=== PATIENT | male | born 1995 | race African-American/Black ===

== ENCOUNTER 2018-04-30 16:24 | Inpatient (IN) ==
--- NOTE | 2018-04-30 17:23 | ED ---
HPI General Chief Complaint: Psychiatric Symptoms Stated Complaint: psych eval/FCSO Time Seen by Provider: 04/30/18 17:01 Source: patient Mode of arrival: other (FCSO) Limitations: no limitations History of Present Illness HPI Narrative: 22-year-old male presents emergency department as a Al act with hallucinations. Servando act states that patient has been seeing people outside of his house. He denies suicidal homicidal ideations at this time. He denies recent illicit drug use says he does smoke marijuana every now and then. Denies recent use of alcohol. Patient says that he has been self-medicating which helps control his "chemical imbalance" for his bipolar disorder. Patient says that he recently got out of skilled nursing and says that he has been dealing drugs but not actually doing these drugs. He says that people have been stealing from his home as he lets people in his home to stay. He says his mother is making a trip to [place] tomorrow and believes this is the reason why she called them to be Al acted today. MD complaint: other Duration: constant History of same: No Relieving factors: other (Subjectively, illicit drugs) Exacerbating factors: none Context: not taking psychiatric medications Associated psychiatric symptoms: racing thoughts Associated symptoms: insomnia Treatments prior to arrival: none Related Data Home Medications Medication Instructions Recorded Confirmed No Known Home Medications 04/30/18 04/30/18 Allergies Allergy/AdvReac Type Severity Reaction Status Date / Time No Known Allergies Uncoded 05/17/11 22:53 Review of Systems Except as stated in HPI: all other systems reviewed are negative Exam Narrative Exam Narrative: GENERAL: Well-developed, nourished in no apparent distress SKIN: Focused skin assessment warm/dry. HEAD: Atraumatic. Normocephalic. EYES: Pupils equal and round. No scleral icterus. No injection or drainage. ENT: No nasal bleeding or discharge. Mucous membranes pink and moist. NECK: Trachea midline. No JVD. CARDIOVASCULAR: Regular rate and rhythm. No murmur appreciated. RESPIRATORY: No accessory muscle use. Clear to auscultation. Breath sounds equal bilaterally. GASTROINTESTINAL: Abdomen soft, non-tender, nondistended. Hepatic and splenic margins not palpable. No CVA tenderness MUSCULOSKELETAL: No obvious deformities. No clubbing. No cyanosis. No edema. NEUROLOGICAL: Awake and alert. No obvious cranial nerve deficits. Motor grossly within normal limits. Normal speech. PSYCHIATRIC: Appropriate mood, normal affect, uncertain judgment. Course Initial Documented Vital Signs Temperature 98.7 F 04/30/18 16:46 Pulse Rate 78 04/30/18 16:46 Respiratory Rate 18 04/30/18 16:46 Blood Pressure 156/98 H 04/30/18 16:46 Pulse Oximetry 98 04/30/18 16:46 Last Documented Vital Signs Temperature 98.7 F 04/30/18 16:46 Pulse Rate 78 04/30/18 16:46 Respiratory Rate 18 04/30/18 16:46 Blood Pressure 156/98 H 04/30/18 16:46 Pulse Oximetry 98 04/30/18 16:46 Medical Decision Making MDM Narrative Medical decision making narrative: 22-year-old male presents emergency department as a Al act with visual and auditory hallucinations. Patient adamantly denies that these are actually hallucinations and states that because he deals drugs he has people around his house all the time. According to the Al act patient has not slept in 3 days. He has no complaints today. His vital signs are stable. Labs ordered and stable. Pending urine drug screen. Patient is medically cleared to see psych. Lab Data Result diagrams: 04/30/18 16:48 04/30/18 16:48 Lab Results 04/30/18 04/30/18 Range/Units 16:48 16:48 WBC 6.3 (4.0-11.0) th/mm3 RBC 6.22 H (4.50-5.90) mil/mm3 Hgb 14.1 (13.0-17.0) gm/dL Hct 43.7 (39.0-51.0) % MCV 70.2 L (80.0-100.0) fL MCH 22.7 L (27.0-34.0) pg MCHC 32.3 (32.0-36.0) % RDW 14.9 (11.6-17.2) % Plt Count 202 (150-450) th/mm3 MPV 10.9 (7.0-11.0) fL Neut % (Auto) 57.9 (16.0-70.0) % Lymph % (Auto) 27.2 (9.0-44.0) % [place] % (Auto) 11.0 H (0.0-8.0) % Eos % (Auto) 3.3 (0.0-4.0) % Baso % (Auto) 0.6 (0.0-2.0) % Neut # (Auto) 3.6 (1.8-7.7) th/mm3 Lymph # (Auto) 1.7 (1.0-4.8) th/mm3 [place] # (Auto) 0.7 (0.0-0.9) th/mm3 Eos # (Auto) 0.2 (0.0-0.4) th/mm3 Baso # (Auto) 0.0 (0.0-0.2) th/mm3 WBC Differential . Differential Comment Auto diff final Sodium 141 (136-145) meq/L Potassium 3.9 (3.5-5.1) meq/L Chloride 106 (98-107) meq/L Carbon Dioxide 25.9 (21.0-32.0) meq/L Anion Gap 9 (5-15) meq/L BUN 8 (7-18) mg/dL Creatinine 1.07 (0.60-1.30) mg/dL Estimated GFR Greater than 89 (>89) mL/min Random Glucose 86 (74-106) mg/dL Calcium 9.3 (8.5-10.1) mg/dL Total Bilirubin 0.4 (0.2-1.0) mg/dL AST 44 H (15-37) U/L ALT 54 (12-78) U/L Alkaline Phosphatase 73 (45-117) U/L Total Protein 8.3 H (6.4-8.2) g/dL Albumin 3.7 (3.4-5.0) g/dL TSH 0.610 (0.358-3.740) uIU/mL Serum Alcohol Less than 3 (0-5) mg/dL Discharge Plan Discharge Disposition Patient Disposition: 30 Still Patient Discharge Condition Condition: Stable Discharge Details Diagnosis: Acute psychosis Physicians Team ED Provider: Bobbi Ahumada ED Midlevel Provider: Jessica Murillo Primary Care Provider: Primary Care Crystal Jara Rxs /Orders / Referrals /Forms Prescriptions: No Action No Known Home Medications RF: 0 Status ED Status: Medically Cleared
[2018-04-30 18:06] LABS: Baso % (Auto) 0.6 % (0.0-2.0); Eos # (Auto) 0.2 th/mm3 (0.0-0.4); Eos % (Auto) 3.3 % (0.0-4.0); Hematocrit 43.7 % (39.0-51.0); Hemoglobin 14.1 gm/dL (13.0-17.0); Lymph # (Auto) 1.7 th/mm3 (1.0-4.8); Lymph % (Auto) 27.2 % (9.0-44.0); Mean Corpuscular HGB Conc 32.3 % (32.0-36.0); Mean Corpuscular Hemoglobin 22.7 pg (27.0-34.0); Mean Corpuscular Volume 70.2 fL (80.0-100.0); Mean Platelet Volume 10.9 fL (7.0-11.0); Mono # (Auto) 0.7 th/mm3 (0.0-0.9); Neut # (Auto) 3.6 th/mm3 (1.8-7.7); Neut % (Auto) 57.9 % (16.0-70.0); Platelet Count 202 th/mm3 (150-450); Red Blood Count 6.22 mil/mm3 (4.50-5.90); Red Cell Distribution Width 14.9 % (11.6-17.2); White Blood Count 6.3 th/mm3 (4.0-11.0)
[2018-04-30 18:43] LABS: Albumin 3.7 g/dL (3.4-5.0); Anion Gap 9 meq/L (5-15); Aspartate Aminotransferase 44 U/L (15-37); Blood Urea Nitrogen 8 mg/dL (7-18); Calcium 9.3 mg/dL (8.5-10.1); Carbon Dioxide 25.9 meq/L (21.0-32.0); Chloride 106 meq/L (98-107); Glomerular Filtration Rate Greater Than 89 mL/min (>89); Glucose,Random 86 mg/dL (74-106); Potassium 3.9 meq/L (3.5-5.1); Sodium 141 meq/L (136-145)
[2018-04-30 18:45] LABS: Alanine Aminotransferase 54 U/L (12-78)
[2018-04-30 18:55] LABS: Alkaline Phosphatase 73 U/L (45-117); Total Protein 8.3 g/dL (6.4-8.2)
[2018-04-30 22:44] LABS: Amphetamine Screen,Urine Neg (Neg); Barbiturate Screen,Urine Neg (Neg); Cannabinoid Screen,Urine Pos (Neg); Cocaine Screen,Urine Neg (Neg)
[2018-04-30 22:47] LABS: Opiate Screen,Urine Neg (Neg)
[2018-05-01] MEDS ORDERED: Aluminum/Magnesium/Simethacone Susp 30 ML UDC PO PRN (18:53)
--- NOTE | 2018-05-01 18:55 | ED ---
HPI - Psych - General Source: patient Mode of arrival: other (FCSO) Limitations: altered mental status - History of Present Illness MD complaint: altered mental status Duration: constant History of same: Yes (2010) Relieving factors: other (Subjectively, illicit drugs) Exacerbating factors: none Context: recent drug abuse Associated psychiatric symptoms: delusions Associated symptoms: insomnia Treatments prior to arrival: none - General Chief Complaint: Psychiatric Symptoms Stated Complaint: psych eval/FCSO Time Seen by Provider: 04/30/18 17:01 - History of Present Illness HPI Narrative: This is a 22 year-old, single -Surinamese male who presents under a Al act for bizarre behavior. Patient has 1 previous psychiatric admission at [facility] for depression in 2010. Reviewed electronic medical record, labs, and discussed case with staff. Patient 's toxicology is positive for cannabinoids. His evaluation was performed in his room in the ED. Patient is awake, alert and oriented X 3. His speech is clear, logical, and organized. There is no indication of internal stimulation or thought blocking. However, he is fixated on the idea that his mother has moved to [place] and we have caused him to miss the plane due to keeping him here. A phone call to his mother, by his nurse Caitlyn, revealed that she is taking a five day trip in the future and offered to bring him along. He denies suicidal or homicidal ideation, auditory and visual hallucinations. His mother reports that he has been paranoid, believing that people are outside that "want to kill him" . She also reports that he has made verbal threats to harm her, and has not slept in three days. He is disheveled and malodorous. I was unable to ascertain if patient hears or sees the people he believes are outside, due to his becoming disinclined to answer questions. (Ivy Melchor) - Related Data Home Medications Medication Instructions Recorded Confirmed No Known Home Medications 04/30/18 04/30/18 Allergies Allergy/AdvReac Type Severity Reaction Status Date / Time No Known Allergies Uncoded 05/17/11 22:53 PMFSH - History History Provided By: Patient, Family Member - Medical History Medical History: Medical History (Last Reviewed 05/01/18 @ 19:06 by FLAVIO Sampson) Patient denies medical problems - Tobacco History Second Hand Smoke Exposure: No Tobacco Use In Past 30 Days: No Smoking Status: Unknown if ever smoked - Alcohol History How Often Do You Have a Drink Containing Alcohol: Never - Substance Use History Substance History: No History of Abuse - Immunization History Tetanus Immunization: Unsure Hx Influenza Vaccine This Season: No Psychiatric History - Psychiatric History Psychiatric Treatment History: History of Psychiatric Treatment, History of Hospitalization in a Psychiatric Facility, History of Community Mental Health Treatment History of Inpatient Treatment: Yes Firearms in Home: No - Psychiatric History Admitted in 2010 to [facility] for depression. (Ivy Melchor) - Legal History UTO (Ivy Melchor) Physical Exam - General Limitations: no limitations Mental Status Examination Appearance: Disheveled, Malodorous Consciousness: Alert, Vigilant Orientation: Person, Place, Date/Time Motor Activity: Normal gait Speech: Unremarkable Language: Adequate Fund of Knowledge: Inadequate Attention and Concentration: Adequate Memory: Unremarkable Mood: Anxious Affect: Anxious Thought Process & Associations: Circumstantial, Tangential Thought Content: Delusional Delusion Type: Paranoid Suicidal Ideation: No Suicidal Plan: No Suicidal Intention: No Homicidal Ideation: No Homicidal Plan: No Homicidal Intention: No Insight: Poor Judgment: Impulsive Initial Documented Vital Signs Temperature 98.7 F 04/30/18 16:46 Pulse Rate 78 04/30/18 16:46 Respiratory Rate 18 04/30/18 16:46 Blood Pressure 156/98 H 04/30/18 16:46 Pulse Oximetry 98 04/30/18 16:46 Last Documented Vital Signs Temperature 98.4 F 05/01/18 10:46 Pulse Rate 82 05/01/18 10:46 Respiratory Rate 16 05/01/18 10:46 Blood Pressure 148/92 H 05/01/18 10:46 Pulse Oximetry 99 05/01/18 10:46 MDM - Psych - Diagnosis (1) Unspecified psychosis Status: Acute - Lab Data Result diagrams: 04/30/18 16:48 04/30/18 16:48 - [facility] Narrative Medical decision making narrative: Based on the mother's description of his recent paranoid behaviors and his threats to harm her, it seems likely that he is experiencing a psychois. He will be admitted under the Al Act to a locked inpatient psychiatric unit for evaluation and treatment as deemed necessary. (Ivy Melchor) - Lab Data Lab Results 04/30/18 04/30/18 04/30/18 Range/Units 16:48 16:48 17:07 WBC 6.3 (4.0-11.0) th/mm3 RBC 6.22 H (4.50-5.90) mil/mm3 Hgb 14.1 (13.0-17.0) gm/dL Hct 43.7 (39.0-51.0) % MCV 70.2 L (80.0-100.0) fL MCH 22.7 L (27.0-34.0) pg MCHC 32.3 (32.0-36.0) % RDW 14.9 (11.6-17.2) % Plt Count 202 (150-450) th/mm3 MPV 10.9 (7.0-11.0) fL Neut % (Auto) 57.9 (16.0-70.0) % Lymph % (Auto) 27.2 (9.0-44.0) % [place] % (Auto) 11.0 H (0.0-8.0) % Eos % (Auto) 3.3 (0.0-4.0) % Baso % (Auto) 0.6 (0.0-2.0) % Neut # (Auto) 3.6 (1.8-7.7) th/mm3 Lymph # (Auto) 1.7 (1.0-4.8) th/mm3 [place] # (Auto) 0.7 (0.0-0.9) th/mm3 Eos # (Auto) 0.2 (0.0-0.4) th/mm3 Baso # (Auto) 0.0 (0.0-0.2) th/mm3 WBC Differential . Differential Comment Auto diff final Sodium 141 (136-145) meq/L Potassium 3.9 (3.5-5.1) meq/L Chloride 106 (98-107) meq/L Carbon Dioxide 25.9 (21.0-32.0) meq/L Anion Gap 9 (5-15) meq/L BUN 8 (7-18) mg/dL Creatinine 1.07 (0.60-1.30) mg/dL Estimated GFR Greater than 89 (>89) mL/min Random Glucose 86 (74-106) mg/dL Calcium 9.3 (8.5-10.1) mg/dL Total Bilirubin 0.4 (0.2-1.0) mg/dL AST 44 H (15-37) U/L ALT 54 (12-78) U/L Alkaline Phosphatase 73 (45-117) U/L Total Protein 8.3 H (6.4-8.2) g/dL Albumin 3.7 (3.4-5.0) g/dL TSH 0.610 (0.358-3.740) uIU/mL Urine Opiates Screen Neg (Neg) Ur Barbiturates Screen Neg (Neg) Ur Amphetamines Screen Neg (Neg) U Benzodiazepines Scrn Neg (Neg) Urine Cocaine Screen Neg (Neg) U Cannabinoids Screen Pos H (Neg) Serum Alcohol Less than 3 (0-5) mg/dL
--- NOTE | 2018-05-02 13:20 | P.HPPSY ---
Provisional Diagnosis Admission Date: May 01, 2018 18:55 [place].: Unspecified psychosis, rule out substance-induced psychotic disorder Competence Certification of Person's Competence To Provide Express and Informed Consent I have personally examined Tomas Luna, a person being served at [facility] on, May 02, 2018 1301. Express and informed consent means consent voluntarily given in writing, by a competent person, after sufficient explanation and disclosure of the subject matter involved to enable the person to make a knowing and willful decision without any element of force, fraud, deceit, duress, or other form of constraint or coercion. This person is 18 years of age or older, is not now known to be incompetent to consent to treatment with a guardian advocate, and does not have a health care surrogate or proxy currently making medical treatment decisions. I have found this person to be one of the following: [] Competent to provide express and informed consent, as defined above, for voluntary admission to this facility and is competent to provide express and informed consent for treatment. He/she has the consistent capacity to make well reasoned, willful, and knowing decisions concerning his or her medical or mental health treatment. The person fully and consistently understands the purpose of the admission for examination/placement and is fully capable of personally exercising all rights assured [place] [] Incompetent to provide express and informed consent to voluntary admission, and this is incompetent to provide express and informed consent to treatment. The person must be transferred to involuntary status and a petition for a guardian advocate filed with the Circuit Court. [xxx] Refusing to provide express and informed consent to voluntary admission but is competent to provide express and informed consent for treatment. The person must be discharged or transferred to involuntary status. Form shall be completed within 24 hours of a person's arrival at the receiving facility and filed in the clinical record of each person: 1. Admitted on a voluntary basis 2. Permitted to provide express and informed consent to his/her own treatment 3. Allowed to transfer from involuntary to voluntary status 4. Prior to permitting a person to consent to his or her own treatment after having been previously found incompetent to consent to treatment. History of Present Illness Capacity: Has capacity History of Present Illness: Patient is a 22-year-old -Tunisian man, single, unemployed, domiciled with mother, with a past psychiatric history of bipolar disorder as per patient , PTSD, multiple psychiatric admissions last time at [facility] in 2010, multiple suicide attempt years ago, with a substance use history significant for marijuana use, with a past medical history of diabetes as per patient, who was brought under Al act due to reported paranoid ideation along with poor sleep for the past 3 days which patient was admitted to the inpatient psychiatry for further evaluation and management for possible psychosis. Patient in the ED had no behavioral disturbances although noted to be superficially cooperative during interview and collateral information obtained in the ED reported that mother had stated patient had an paranoid, had not slept for 3 days and had made verbal threats to harm her. Patient was seen on the unit interviewed with nurse and counselor and noted to be somewhat irritable with interview as he does not want to be here in the hospital stating that his mother had made up these accusations in the context of mother leaving to [place] for several days. Patient states that he is feeling "irritated" stating that his mother had lied trying to get control of him and have him kept in the hospital at this time. Patient's that he is not depressed, denying any perceptual services denying feeling that there are people after him but did state that there are times where she is round in his home from people he allows to stay in his house. He reports be unemployed but then states that he does makes money but did not elaborate on how. As per chart patient had reported having sold drugs but not use them. He refuses to resume any medications at this time stating that he had been on many combinations of regimens of medications in the past and has recently been attempting to manage his symptoms through holistic means and therefore refuses to resume any psychotropic medications. Patient mentions having gone to custodial and having been released several months ago; denied any criminal charges of violence. Patient refuses to provide consent to speak with patient's mother and states that he did not want to return back to live with her and that he has planned to call a friend stay with them. Patient this time denies any perceptional service of delusions, denies any SI or HI. Past psychiatric history: Previous psychiatric diagnoses of bipolar disorder, PTSD, multiple psychiatric admissions last time and [facility] in 2010, multiple suicide attempt years ago, previous medication trials psychotropic medications but reports his last regimen included Lexapro and Latuda which she had taken "awhile ago". Substance use history: Marijuana use reports prior use of other services but did not elaborate. Past medical history: Patient reports history of diabetes? Allergies: NKDA Social history: Single, no children, domiciled with mother, unemployed, supported financially by mother, and legal history: Recently released from custodial. Patient denies any access to firearms, no background. - Inpatient Certification I certify that the inpatient services were ordered in accordance with Medicare regulations governing the order. This includes certification that hospital inpatient services are reasonable and necessary and in the case of services not specified as inpatient-only under 42 CFR 419.22(n), that they are appropriately provided as inpatient services in accordance to with the 2-midnight benchmark under 43 CFR 412.3(e) I certify that inpatient psychiatric hospital services are medically necessary. Evaluation and treatment and/or diagnostic testing are expected to improve the patient's condition. The patient needs on a daily basis, active treatment furnished directly by or requiring the supervision of inpatient psychiatric facility personnel. Estimated Total Length of Stay (Days): 7 Plans for Post Hospital Care: Home Review of Systems All other systems reviewed negative except as [facility] - History History Provided By: Patient, Family Member - Medical History Medical History: Medical History (Last Reviewed 05/01/18 @ 19:06 by FLAVIO Sampson) Patient denies medical problems - Tobacco History Second Hand Smoke Exposure: No Tobacco Use In Past 30 Days: No Smoking Status: Unknown if ever smoked - Alcohol History How Often Do You Have a Drink Containing Alcohol: Never - Substance Use History Substance History: No History of Abuse - Immunization History Tetanus Immunization: Unsure Hx Influenza Vaccine This Season: No Quality Measures - Psychiatric History Violence risk to others in the last 6 months: Low S patient not endorsing any homicidal ideations but will be monitored as there was report of patient having made threats to harm other per collateral information. Violence risk to self in the last 6 months: Not acutely elevated as patient denying any suicide ideations but has history of suicide attempts in the past. - Substance Abuse History Drug or alcohol use in the past 12 months: Marijuana use, history of other substance use which patient did not elaborate. - Patient Strengths Patient's strengths (minimum of 2): Verbal and communicative Medications and Allergies Active Medications: Active Medications Al Hydrox/Mg Hydrox/Simethicone (Mag-Al Plus Susp Liq) 30 ml PO Q6H PRN PRN Reason: DYSPEPSIA Allergies Allergy/AdvReac Type Severity Reaction Status Date / Time No Known Allergies Uncoded 05/17/11 22:53 Home Medications Medication Instructions Recorded Confirmed Type No Known Home Medications 04/30/18 04/30/18 History Results - Labs CBC & Chem 7: 04/30/18 16:48 04/30/18 16:48 Exam Vital signs: Vital Signs 05/02/18 06:35 Temperature 97.6 F Pulse Rate 63 Respiratory Rate 17 Blood Pressure 141/91 H Pulse Oximetry 97 Narrative: Patient not noted to be in acute distress, no gross motor abnormalities, no tremors or EPS, no noted psychomotor retardation or agitation. Mental Status Examination Appearance: Disheveled, Malodorous Consciousness: Alert, Vigilant Orientation: Person, Place, Date/Time Motor Activity: Normal gait Speech: Unremarkable Language: Adequate Fund of Knowledge: Inadequate Attention and Concentration: Adequate Memory: Unremarkable Mood: Other ("Irritated") Affect: Irritable Thought Process & Associations: Other ([place]) Thought Content: Other Hallucination Type: None Delusion Type: Paranoid (Denies today) Suicidal Ideation: No Suicidal Plan: No Suicidal Intention: No Homicidal Ideation: No Homicidal Plan: No Homicidal Intention: No Insight: Poor Judgment: Impulsive Assessment and Plan - Assessment (1) Unspecified psychosis Code(s): F29 - Unspecified psychosis not due to a substance or known physiological condition Status: Acute - Plan Plan: Estimated LOS: [] days Patient is a 22-year-old -Tunisian man who carries a diagnosis of bipolar disorder, PTSD, multiple psychiatric admissions (last at [facility] in 2010 ), remote suicide attempts, with a substance use history significant for marijuana use, who was brought in under [employer] act due to reported paranoid ideation, poor sleep in the context of marijuana use which patient was admitted to the inpatient psychiatry for further evaluation and management. Patient this time denying any paranoid or persecutory delusions, denying any suicidal homicidal ideation, irritable due to having been admitted to the inpatient psychiatry unit. Patient not noted to have any disorganization or psychotic thought process but due to recent concerns as stated in the Al act patient would be kept for observation for safety. Patient symptoms may also have stemmed from recent marijuana use probable due to substance-induced. Petition for involuntary hospitalization started, second opinion requested. Patient has capacity to consent for treatment at this time refusing any medications at this time. We will continue to monitor mood and behavior. Social work intervention for psychosocial assessment. Discharge planning in progress. Justification for Continued Inpatient Stay: At risk of further decompensation a lower level of care.
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
--- NOTE | 2018-05-03 20:33 | P.DSPSY ---
Psychiatry Discharge Summary Inpatient Psychiatric care?: Yes Advance Directives: No Mental Health Advance Directive: No Health Care Proxy: No - Admission Admission Date: May 01, 2018 18:55 - Admission Diagnosis (1) Unspecified psychosis Code(s): F29 - Unspecified psychosis not due to a substance or known physiological condition Brief History: Patient is a 22-year-old -[place] man, single, unemployed, domiciled with mother, with a past psychiatric history of bipolar disorder as per patient , PTSD, multiple psychiatric admissions last time at [place] in 2010, multiple suicide attempt years ago, with a substance use history significant for marijuana use, with a past medical history of diabetes as per patient, who was brought under Al act due to reported paranoid ideation along with poor sleep for the past 3 days which patient was admitted to the inpatient psychiatry for further evaluation and management for possible psychosis. Patient in the ED had no behavioral disturbances although noted to be superficially cooperative during interview and collateral information obtained in the ED reported that mother had stated patient had an paranoid, had not slept for 3 days and had made verbal threats to harm her. Patient was seen on the unit interviewed with nurse and counselor and noted to be somewhat irritable with interview as he does not want to be here in the hospital stating that his mother had made up these accusations in the context of mother leaving to [place] for several days. Patient states that he is feeling "irritated" stating that his mother had lied trying to get control of him and have him kept in the hospital at this time. Patient's that he is not depressed, denying any perceptual services denying feeling that there are people after him but did state that there are times where she is round in his home from people he allows to stay in his house. He reports be unemployed but then states that he does makes money but did not elaborate on how. As per chart patient had reported having sold drugs but not use them. He refuses to resume any medications at this time stating that he had been on many combinations of regimens of medications in the past and has recently been attempting to manage his symptoms through holistic means and therefore refuses to resume any psychotropic medications. Patient mentions having gone to [facility] and having been released several months ago; denied any criminal charges of violence. Patient refuses to provide consent to speak with patient's mother and states that he did not want to return back to live with her and that he has planned to call a friend stay with them. Patient this time denies any perceptional service of delusions, denies any SI or HI. Past psychiatric history: Previous psychiatric diagnoses of bipolar disorder, PTSD, multiple psychiatric admissions last time and [facility] in 2010, multiple suicide attempt years ago, previous medication trials psychotropic medications but reports his last regimen included Lexapro and Latuda which she had taken "awhile ago". Substance use history: Marijuana use reports prior use of other services but did not elaborate. Past medical history: Patient reports history of diabetes? Allergies: NKDA Social history: Single, no children, domiciled with mother, unemployed, supported financially by mother, and legal history: Recently released from [facility]. Patient denies any access to firearms, no background. Tobacco Use In Past 30 Days: Yes How Often Do You Have a Drink Containing Alcohol: Monthly or less Hospital Course: Patient is a 22-year-old -[place] man, single, unemployed, domiciled with mother, with a past psychiatric history of bipolar disorder as per patient , PTSD, multiple psychiatric admissions last time at [place] in 2010, multiple suicide attempt years ago, with a substance use history significant for marijuana use, with a past medical history of diabetes as per patient, who was brought under Al act due to reported paranoid ideation along with poor sleep for the past 3 days which patient was admitted to the inpatient psychiatry for further evaluation and management. Patient was kept for observation, not started on any psychotropic medications as he had refused medications. Patient was not noted to have any apparent mood or psychotic symptoms although had some irritability due to having been admitted to the inpatient unit. Patient was observed to have had appropriate behavior, no aggressive nor any behavioral disturbances noted. Patient was noted to have stable mood and did not endorse suicidal or homicidal ideation, perceptual disturbances nor any delusions. He was observed by staff to not have had any behavioral disturbances, not having made any suicidal or homicidal statements and maintained stable mood through admission and was noted to participate with staff adequately. Upon discharge patient stated feeling fine, reported feeling well with the treatment, denied any SI, HI, perceptual disturbances or delusions. Weighing the acute, chronic, and protective factors and based on the available evidence, I log snaker to a reasonable degree of medical certainty that the patient is at low imminent risk of harm to self or others from a mental illness as defined under the Al act and his level of function is adequate as observed on the unit for planned level of outpatient care. He was counseled regarding warning signs for need to return to the psychiatric emergency room as part of a general safety plan. Patient advised to call 911 or go nearest ED in case of emergency. Patient agreed with plan. - Discharge Discharge Date: 05/03/18 - Discharge Diagnosis (1) Unspecified psychosis Code(s): F29 - Unspecified psychosis not due to a substance or known physiological condition Status: Acute (2) Cannabis abuse Code(s): F12.10 - Cannabis abuse, uncomplicated Status: Acute Discharge Disposition: Home - Discharge Instructions Discharge Diet: Heart Healthy Diet Activities You Can Perform: Regular- No Restrictions - Discharge Time > 30 minutes Mental Status Examination Appearance: Appropriate Consciousness: Alert Orientation: x4 Motor Activity: Normal gait Speech: Unremarkable Language: Adequate Fund of Knowledge: Inadequate (Fair) Attention and Concentration: Adequate Memory: Unremarkable (Grossly intact on clinical exam) Mood: Appropriate Affect: Appropriate Thought Process & Associations: Intact, Logical, Linear Thought Content: Appropriate Hallucination Type: None Delusion Type: None Suicidal Ideation: No Suicidal Plan: No Suicidal Intention: No Homicidal Ideation: No Homicidal Plan: No Homicidal Intention: No Insight: Fair Judgment: Impulsive Discharge/Advance Care Plan - Results Vital Signs: Last Vital Signs Temp 98.5 F 05/03/18 06:00 Pulse 83 05/03/18 06:00 Resp 16 05/03/18 06:00 BP 163/99 H 05/03/18 06:00 Pulse Ox 100 05/03/18 06:00 Lab Results: Laboratory Results TSH 0.610 uIU/mL (0.358-3.740) 04/30/18 16:48 Summary of Procedures: none Pending Results: None - Medications Number of antipsychotic medications at discharge: 0 - Discharge Care Plan Goals to Promote Your Health: * To prevent worsening of your condition and complications * To maintain your health at the optimal level Directions to Meet Your Goals: Take your medications as prescribed Follow your dietary instruction Follow activity as directed Keep your appointments as scheduled Take your immunizations and boosters as scheduled If your symptoms worsen call your PCP, if no PCP go to Urgent Care Center or Emergency Room For 24/7 questions related to your inpatient stay or results of tests pending at discharge, please contact Dr. Cosmo Larios MD at Smoking is Dangerous to Your Health. Avoid second hand smoking
== END 2018-05-03 16:20 | disposition home or self-care (01) ==
LOC: NEDAMB 16:24 → NEDA 05-01 18:55 → H270 05-01 20:42
PROVIDERS: ADMIT Student in an Organized Health Care Education/Training Program; ATTEND Student in an Organized Health Care Education/Training Program